=== PATIENT | male | born 1970 ===

== ENCOUNTER 2020-08-11 15:00 | Outpatient (REF) | payer SELFPAY ==
[2020-08-11 15:22] LABS: Source Nasal/Nares
[2020-08-11 16:22] LABS: COVID-19 PCR Negative (Negative)
== END 2020-08-11 15:01 | disposition home or self-care (01) ==
LOC: LBN 15:00
PROVIDERS: Visit Provider Family Medicine
DX: Z20.822 Contact with and (suspected) exposure to COVID-19 (principal)
CPT/HCPCS: 87635